=== PATIENT | female | born 1960 | race Caucasian/White ===

== ENCOUNTER → 2016-08-04 | Day surgery (SDC) | payer BC ==
[2016-07-29 15:19] VITALS: BMI 25.0
[~2016-08-04] VITALS: Ht 175.3 cm; Wt 79.5 kg
[~2016-08-04] MED LIST: DIPH-437 PO; LEVO200T PO; LIDOCAINE HCL 2% 2 ML VIAL (20MG/ML) ONE; MULT-506 PO; PARO1TAB27 PO; PROPOFOL IV EMULSION 10 MG/ML 20 ML VIAL IV ONE; SODIUM CHLORIDE 0.9% 500ML 500 ML IV ONE
[2016-08-04 09:28] VITALS: Ht 175.3 cm; Wt 79.5 kg
--- NOTE | 2016-08-04 09:41 | Endo History and Physical ---
History & Physical Date of Service: Aug 04, 2016. Chief Complaint: SESSILE SERRATED ADENOMA, TUBULAR ADENOMA Referring Physician: DR SMITH History of Present Illness 56 yo CF who presents for colonoscopy secondary to history of colon polyps. Past Medical History Anxiety, CABG, Thyroid Disease Past Surgical History Hx Cardiac Surgery: No Hx Internal Defibrillator: No Hx Pacemaker: No Hx Abdominal Surgery: No Hx of Implantable Prosthesis: No Hx Post-Op Nausea and Vomiting: No Hx Cancer Surgery: Yes (THYROIDECTOMY/LYMPH NODE REMOVALS) Hx Thoracic Surgery: No Hx Orthopedic: No Hx Urinary Tract Surgery: No Family History None Social History Smoking Status: Never Smoker Hx Substance Use: No Hx Alcohol Use: Yes (1 GLASS WINE/NIGHT) Allergies Coded Allergies: NO KNOWN DRUG ALLERGIES (Verified Allergy, Unknown, ., 07/29/16) Nickel (Verified Allergy, Unknown, ITCHY RASH, 07/29/16) Latex1 -Allergic Contact Dermititis (Verified Adverse Reaction, Unknown, SKIN IRRITATION, 07/29/16) Current Medications Reported Home Medications Medications Dose Route/Sig Max Daily Dose Days Date Category Tylenol Pm (Diphenhydramine-Acetaminophen) 1 Tab Tab 1 Tab PO HS 07/29/16 Reported Multivitamin (Multivitamins) Tab 1 Tab PO QAM 07/25/15 Reported Synthroid (Levothyroxine Sodium) 200 Mcg Tab 200 Mcg PO QAM 07/25/15 Reported Paxil (Paroxetine HCl) 20 Mg Tab 20 Mg PO QAM 07/25/15 Reported Vital Signs Weight (Kilograms): 79.55 Height (Feet): 5 Height (Inches): 9 Date Time Temp Pulse Resp B/P Pulse Ox O2 Delivery O2 Flow Rate FiO2 08/04/16 09:27 37.0 65 20 128/76 96 Room Air Physical Exam General Appearance: WD/WN, no apparent distress Respiratory/Chest: Auscultation: breath sounds normal Cardiovascular: Heart Auscultation: RRR Abdomen: Bowel Sounds: normal Inspection & Palpation: soft, non-distended, no tenderness, guarding & rebound Assessment and Plan Assessment: 56 yo CF who presents for colonoscopy secondary to history of colon polyps. Plan: Proceed with colonoscopy.
--- NOTE | 2016-08-04 10:51 | Discharge Instructions ---
Endoscopy Patient Instructions Date / Procedure(s) Performed Aug 04, 2016. Colonoscopy Allergy Information Coded Allergies: NO KNOWN DRUG ALLERGIES (Verified Allergy, Unknown, ., 07/29/16) Nickel (Verified Allergy, Unknown, ITCHY RASH, 07/29/16) Latex1 -Allergic Contact Dermititis (Verified Adverse Reaction, Unknown, SKIN IRRITATION, 07/29/16) Discharge Date / Findings Aug 04, 2016. Internal hemorrhoids Fair bowel prep Medication Instructions OK to resume all medications today as prescribed Reported Home Medications Medications Dose Route/Sig Max Daily Dose Days Date Category Tylenol Pm (Diphenhydramine-Acetaminophen) 1 Tab Tab 1 Tab PO HS 07/29/16 Reported Multivitamin (Multivitamins) Tab 1 Tab PO QAM 07/25/15 Reported Synthroid (Levothyroxine Sodium) 200 Mcg Tab 200 Mcg PO QAM 07/25/15 Reported Paxil (Paroxetine HCl) 20 Mg Tab 20 Mg PO QAM 07/25/15 Reported Provider Instructions Activity Restrictions - No exercising or heavy lifting for 24 hours. - Do not drink alcohol the day of the procedure. - Do not drive a car or operate machinery until the day after the procedure. - Do not make any important decisions or sign important papers in 24 hours after the procedure. Following Day: - Return to full activity which may include returning to work/school. Diet Start your diet with liquids and light foods (jello, soup, juice, toast). Then eat your usual diet if not nauseated. Treatment For Common After Affects For mild abdominal pain, bloating, or excessive gas: - Rest - Eat lightly - Lie on right side Follow-Up Information Follow-up with DR SMITH as scheduled Anesthesia Information What You Should Know You have had a procedure that required some medicine to reduce anxiety and discomfort. This treatment is called moderate sedation. After receiving the treatment, you may be sleepy, but you will be able to breathe on your own. The effects of the treatment may last for several hours. Follow these instructions along with Activity/Diet recommendations noted above: * Do NOT do anything where dizziness or clumsiness would be dangerous. * Rest quietly at home today, then you can be up and about tomorrow. * Have a responsible person stay with you the rest of today. * You may have had an I.V. today. If so, you may take the dressing off later today. Recommendations Call your doctor if: * Trouble breathing * Continuous vomiting for more than 24 hours * Temperature above 101 degrees * Severe abdominal pain or bloating * Pain not relieved by pain medicine ordered * There is increased drainage or redness from any incision * A large amount of rectal bleeding greater than 2-3 tablespoons. (If you had a polyp/s removed or have hemorrhoids, a small amount of blood - from the rectum is to be expected.) * You have any unanswered questions or concerns. IN THE EVENT OF A SERIOUS EMERGENCY, GO TO THE NEAREST EMERGENCY ROOM Your discharge instructions were prepared by provider Charlie Ocasio. Patient Instructions Signature Page Tanika Rodriguez Patient (or Guardian) Signature/Date: I have read and understand the instructions given to me by my caregivers. Caregiver/RN/Doctor Signature/Date: The above-named patient and/or guardian has received patient instructions on this date. + Original Patient Signature Page (only) stays with chart. Please make copy for patient.
--- NOTE | 2016-08-04 11:10 | Anesthesiology Progress Note ---
Anesthesia Post Op Note Date & Time Aug 04, 2016 at 11:10 Vital Signs Pain Intensity: 0 Vital Signs Past 12 Hours Date Time Temp Pulse Resp B/P Pulse Ox O2 Delivery O2 Flow Rate FiO2 08/04/16 10:51 66 18 106/68 97 Room Air 08/04/16 09:27 37.0 65 20 128/76 96 Room Air Notes Mental Status: alert / awake / arousable, participated in evaluation Pt Amnestic to Procedure: Yes Nausea / Vomiting: adequately controlled Pain: adequately controlled Airway Patency, RR, SpO2: stable & adequate BP & HR: stable & adequate Hydration State: stable & adequate Anesthetic Complications: no major complications apparent
[2016-08-04 11:23] VITALS: BP 119/85; PULSE 65; O2SAT 95
--- NOTE | 2016-08-04 11:27 | GI REPORT ---
Procedure Date: 08/04/2016 10:33 AM Procedure: Colonoscopy Indications: High risk colon cancer surveillance: Personal history of colonic polyps Medicines: Monitored Anesthesia Care Complications: No immediate complications. Estimated Blood Loss: Estimated blood loss: none. Procedure: Pre-Anesthesia Assessment: - Prior to the procedure, a History and Physical was performed, and patient medications and allergies were reviewed. The patient's tolerance of previous anesthesia was also reviewed. The risks and benefits of the procedure and the sedation options and risks were discussed with the patient. All questions were answered, and informed consent was obtained. Prior Anticoagulants: The patient has taken no previous anticoagulant or antiplatelet agents. ASA Grade Assessment: II - A patient with mild systemic disease. After reviewing the risks and benefits, the patient was deemed in satisfactory condition to undergo the procedure. After I obtained informed consent, the scope was passed under direct vision. Throughout the procedure, the patient's blood pressure, pulse, and oxygen saturations were monitored continuously. The Scope was introduced through the anus and advanced to the terminal ileum. The colonoscopy was performed without difficulty. The patient tolerated the procedure well. The quality of the bowel preparation was poor. The terminal ileum, ileocecal valve, appendiceal orifice, and rectum were photographed. Findings: Non-bleeding internal hemorrhoids were found during retroflexion. The hemorrhoids were small. A large amount of liquid semi-solid stool was found in the entire colon, precluding visualization. Lavage of the area was performed using a large amount, resulting in incomplete clearance with fair visualization. Impression: - Non-bleeding internal hemorrhoids. - Stool in the entire examined colon. - No specimens collected. Recommendation: - Resume previous diet. - Continue present medications. - Repeat colonoscopy in 1 year because the bowel preparation was poor. - Return to primary care physician as previously scheduled. Charlie Ocasio DO 08/04/2016 11:26:44 AM This report has been signed electronically. Note Initiated On: 08/04/2016 10:33 AM
== END | disposition home or self-care (01) ==
LOC: C.GI 09:06
PROVIDERS: ATTEND Internal Medicine
DX: Z12.11 Encounter for screening for malignant neoplasm of colon (principal); Z86.010 Personal history of colon polyps; K64.8 Other hemorrhoids; F41.9 Anxiety disorder, unspecified; E07.9 Disorder of thyroid, unspecified; Z88.1 Allergy status to other antibiotic agents; Z98.890 Other specified postprocedural states

== ENCOUNTER → 2016-12-27 | Outpatient (CLI) | payer BC ==
[~2016-12-27] MED LIST changes: -LIDOCAINE HCL 2% 2 ML VIAL (20MG/ML) ONE; -PROPOFOL IV EMULSION 10 MG/ML 20 ML VIAL IV ONE; -SODIUM CHLORIDE 0.9% 500ML 500 ML IV ONE
[2016-12-27 12:18] LABS: BASO % 1.2 %; BASO ABS # 0.06 K/uL (0-0.2); COMPLETE YES; HEMATOCRIT 41.6 % (37-47); IG% 0.8 %; LYMPH % 28.6 %; LYMPH ABS # 1.41 K/uL (1.2-3.4); MEAN CELL VOLUME 96.3 fL (80-100); MEAN CORPUSCULAR HEMOGLOBIN 32.4 pg (25-34); MEAN CORPUSCULAR HGB CONC 33.7 g/dl (32-36); MEAN PLATELET VOLUME 9.6 fL (7.4-10.4); MONO % 6.1 %; NEUT % 63.3 %; PLATELET COUNT 261 K/uL (130-400); RED BLOOD COUNT 4.32 M/uL (4.2-5.4); WHITE BLOOD COUNT 4.93 K/uL (4.8-10.8)
[2016-12-27 13:13] LABS: BLOOD UREA NITROGEN 17 mg/dl (7-18); BUN/CREATININE RATIO 22.6 (10-20); CALCIUM 8.7 mg/dl (8.5-10.1); CARBON DIOXIDE 26 mmol/L (21-32); CHLORIDE 103 mmol/L (98-107); CHOLESTEROL 294 mg/dl (0-200); CREATININE 0.77 mg/dl (0.60-1.20); GLUCOSE 94 mg/dl (70-99); POTASSIUM 4.4 mmol/L (3.5-5.1); SODIUM 138 mmol/L (136-145)
[2016-12-27 13:25] LABS: THYROID STIMULATING HORMONE 0.245 uIu/ml (0.300-4.500); TRIGLYCERIDES 291 mg/dl (0-150); VERY LOW DENSITY LIPOPROT CALC 58 mg/dl
[2016-12-27 13:58] LABS: CHOLESTEROL/HDL RATIO 4.3; HDL CHOLESTEROL 68 mg/dl; LDL CHOLESTEROL CALCULATED 168 mg/dl
[2016-12-28 11:17] LABS: THYROGLOBULIN 0.3 NG/ML (2.8-40.9)
== END | disposition home or self-care (01) ==
LOC: C.LAB1850 10:45
PROVIDERS: ATTEND Internal Medicine
DX: E89.0 Postprocedural hypothyroidism (principal); E78.5 Hyperlipidemia, unspecified; D72.819 Decreased white blood cell count, unspecified

== ENCOUNTER → 2017-07-15 | Outpatient (CLI) | payer OTHER ==
[2017-07-15 17:28] LABS: BLOOD UREA NITROGEN 22 mg/dl (7-18); CALCIUM 8.2 mg/dl (8.5-10.1); CARBON DIOXIDE 28 mmol/L (21-32); CREATININE 0.86 mg/dl (0.60-1.20); GLUCOSE 93 mg/dl (70-99); POTASSIUM 3.7 mmol/L (3.5-5.1); SODIUM 138 mmol/L (136-145)
== END | disposition home or self-care (01) ==
LOC: C.LAB1850 15:08
PROVIDERS: ATTEND Internal Medicine
DX: E89.0 Postprocedural hypothyroidism (principal); G47.00 Insomnia, unspecified; W57.XXXA Bitten or stung by nonvenomous insect and other nonvenomous arthropods, initial encounter